=== PATIENT | male | born 1995 | race Hispanic/Latino ===

== ENCOUNTER 2021-08-21 17:09 | Emergency (ER) | payer OTHER ==
[~2021-08-21] VITALS: Ht 171.4 cm; Wt 88.0 kg
[~2021-08-21 17:09] MED LIST: AMOXIL400 MG/52 PO; FLUTICASONE50 MCG; GARDASIL IM; HAVRIX720 UNI1 IM; MENACTRA IM; VARIVAX SC; motrin
[2021-08-21] MEDS ORDERED: ERYTHROMYCIN O3.5 GM OD (18:32)
[2021-08-21 18:38] VITALS: BP 146/100
== END 2021-08-21 18:46 | disposition home or self-care (01) ==
LOC: ED 17:09
DX: H11.9 Unspecified disorder of conjunctiva (principal); F32.A Depression, unspecified